=== PATIENT | female | born 1960 | race Two or more races ===

== ENCOUNTER 2020-10-01 13:19 | Outpatient (CLI) | payer MEDICAID ==
--- NOTE | 2020-10-01 17:00 | Consultation ---
DATE OF CONSULTATION: 10/01/2020 GASTROENTEROLOGY CONSULTATION CONSULTING PHYSICIAN: Elieser Andujar MD. CHIEF COMPLAINT: Referral for screening colonoscopy, chronic GERD. PAST MEDICAL HISTORY: Hypercholesteremia. PAST SURGICAL HISTORY: Right hand surgery. MEDICATIONS: None. FAMILY HISTORY: Sister had colon cancer. SOCIAL HISTORY: The patient denies any tobacco, alcohol, or drug abuse. ALLERGIES: No known allergies. REVIEW OF SYSTEMS: A 10-point review of systems performed and was grossly negative. PHYSICAL EXAMINATION: VITAL SIGNS: Temperature 96.9, blood pressure 127/80, pulse 76, respirations 20. Weight is 141.1. HEENT: Normocephalic and atraumatic. Sclerae are anicteric. NECK: Supple. No evidence of obvious lymphadenopathy. CARDIOVASCULAR: Regular rate and rhythm. Plus S1, S2. LUNGS: Clear to auscultation bilaterally. ABDOMEN: Positive bowel sounds. Soft and nontender. No rebound. No guarding. No peritoneal sign. EXTREMITIES: No cyanosis, no clubbing, no edema. ASSESSMENT AND PLAN: This is a 60-year-old patient, needs a screening colonoscopy. She never had a colonoscopy before. Also complained of chronic GERD not responding to PPI. Plan to do an endoscopy and colonoscopy when authorization is obtained. Elieser Andujar M.D. DR: SARA JOB#: [id number] CC:
== END 2020-10-01 15:19 | disposition home or self-care (01) ==
LOC: PAN 13:19
DX: K21.9 Gastro-esophageal reflux disease without esophagitis (principal); E78.00 Pure hypercholesterolemia, unspecified; Z80.0 Family history of malignant neoplasm of digestive organs
CPT/HCPCS: 99203

== ENCOUNTER 2020-11-25 09:36 | Outpatient (CLI) | payer MEDICAID ==
--- NOTE | 2020-11-25 11:24 | General Progress Note ---
Subjective ROS Limited/Unobtainable: Yes Allergies: Coded Allergies: No Known Allergies (Unverified , 10/10/20) Objective General Appearance: alert EENT: normal ENT inspection Neck: supple Cardiovascular: normal rate Respiratory/Chest: lungs clear Abdomen: normal bowel sounds, non tender, soft Extremities: non-tender Assessment/Plan Assessment/Plan: s/p EGD and colonooscopy treat for HP RTC in [address] for evaluation of abd pain Elieser Andujar MD Nov 25, 2020 11:24
== END 2020-11-25 11:16 | disposition home or self-care (01) ==
LOC: PAN 09:36
DX: R10.9 Unspecified abdominal pain (principal); B96.81 Helicobacter pylori [H. pylori] as the cause of diseases classified elsewhere
CPT/HCPCS: 99212